=== PATIENT | male | born 1950 | race Two or more races ===

== ENCOUNTER 2016-12-17 16:29 | Emergency (ER) | payer MEDICAID, OTHER ==
[2016-12-17] MEDS ORDERED: HYDROmorphone HCL 2 MG/ML VL IV ONE (19:00)
[2016-12-17] MEDS ORDERED: ONDANSETRON HCL 4 MG/2 ML VIAL IV ONE (19:00)
[2016-12-17 19:32] LABS: Basophils # (auto) 0 uL; Basophils % (auto) 0.3 % (0.0-2.0); Eosinophils # (auto) 0.2 uL; Eosinophils % (auto) 1.9 % (0.0-7.0); Hematocrit 41.8 % (41.0-53.0); Hemoglobin 14.3 g/dL (13.5-17.5); Lymphocytes # (auto) 2.4 uL; Lymphocytes % (auto) 30.2 % (10.0-50.0); Mean Corpuscular Hemoglobin 30.2 pg (28.0-32.0); Mean Corpuscular Hgb Conc. 34.1 g/dL (32.0-36.0); Mean Corpuscular Volume 88.7 fL (80.0-100.0); Mean Platelet Volume 8.3 fL (7.4-10.4); Monocytes # (auto) 0.4 uL; Monocytes % (auto) 4.9 % (0.0-12.0); Neutrophils % (auto) 62.7 % (37.0-80.0); Platelet Count (auto) 230 10^3/uL (140-450); Red Cell Distribution Width 13.3 % (11.6-16.0); White Blood Cell 7.9 10^3/uL (4.4-10.8)
[2016-12-17 19:45] LABS: Albumin 3.7 g/dL (3.4-5.0); Anion Gap 6 (5-15); Aspartate Aminotransferase 8 U/L (15-37); BUN/Creatinine Ratio 16.1; Blood Urea Nitrogen 14 mg/dL (7-18); Calcium 9.1 mg/dL (8.5-10.1); Carbon Dioxide 28 mmol/L (21-32); Chloride 105 mmol/L (98-107); GFR African American 113 mL/min; GFR Non-African American 94 mL/min; Glucose 127 mg/dL (74-106); Magnesium 1.7 mg/dL (1.6-2.6); Potassium 4.5 mmol/L (3.5-5.1); Sodium 139 mmol/L (136-145)
[2016-12-17 19:49] LABS: INR 0.97 (0.9-1.15); Partial Thromboplastin Time 23.8 sec (22.64-33.71); Prothrombin Time 10.5 sec (9.37-12.3)
[2016-12-17 19:50] LABS: Alkaline Phosphatase 47 U/L (45-117); Bilirubin, Total 0.3 mg/dL (0.2-1.0); Total Protein 7.1 g/dL (6.4-8.2)
[2016-12-17 22:15] VITALS: BP 119/72
== END 2016-12-17 22:29 | disposition home or self-care (01) ==
LOC: ER 17:02
DX: R55 Syncope and collapse (principal); R51 Headache; B02.22 Postherpetic trigeminal neuralgia; E11.9 Type 2 diabetes mellitus without complications; H53.8 Other visual disturbances
CPT/HCPCS: 36415; 70450; 80053; 80320; 82962; 83735; 84484; 85025; 85610; 85730; 93005; 94761; 96374; 96375; 99285; J1170; J2405